=== PATIENT | male | born 1990 | race Caucasian/White ===

== ENCOUNTER 2016-12-28 09:49 | Emergency (ER) | payer SELFPAY ==
[~2016-12-28] VITALS: Ht 177.8 cm; Wt 70.0 kg
[~2016-12-28 09:49] MED LIST: PHEN100 PO
[2016-12-28 09:52] VITALS: BP 146/67; PULSE 92; RESP 18; TEMP 98.5; O2SAT 93
[2016-12-28] MEDS ORDERED: DILA100C PO ×2 (10:01→10:39)
[2016-12-28] MEDS ORDERED: SODIUM CHLOR 0.9% 1000 ML INJ 1,000 ML IV ONE (10:01)
--- NOTE | 2016-12-28 10:04 | PD ---
HPI Chief Complaint: Seizure Time Seen by Provider: 09:56 Travel History International Travel<30 days: No Contact w/Intl Traveler<30days: No Traveled to known affect area: No History of Present Illness HPI WHILE OUTSIDE WITNESSES DESCRIBED TONIC CLONIC SEIZURE ACTIVITY....ONCE WITH EMS , PT RECOVERED AND STATED HE WAS OUT OF HIS DILANTIN AND NEEDED REFILLS PFSH Past Medical History Diminished Hearing: No Hypertension: Yes Seizures: Yes (HX FROM ALCOHOL WITHDRAWAL) Social History Alcohol Use: No (FORMER? RELAPSE?) Tobacco Use: Yes Substance Use: No Allergies-Medications (Allergen,Severity, Reaction): Coded Allergies: Augmentin (Verified Allergy, Unknown, 04/28/16) UNKNOWN Reported Meds & Prescriptions Reported Meds & Active Scripts Active Dilantin (Phenytoin Extended) 100 Mg Cap 100 Mg PO TID Reported Dilantin (Phenytoin Extended) 100 Mg Cap 300 Mg PO DAILY Review of Systems ROS Limitations: Clinical Condition Except as stated in HPI: all other systems reviewed are Neg Physical Exam Narrative GENERAL: SKIN: Warm and dry. EXCEPT FOR ABRASION TO RT SHOULDER, RT FOREARM AND TOP OF SCALP HEAD: SCALP CONTUSION TO TOP Normocephalic. EYES: Pupils equal and round. No scleral icterus. No injection or drainage. ENT: No nasal bleeding or discharge. Mucous membranes pink and moist. NECK: Trachea midline. No JVD. CARDIOVASCULAR: Regular rate and rhythm. RESPIRATORY: No accessory muscle use. Clear to auscultation. Breath sounds equal bilaterally. GASTROINTESTINAL: Abdomen soft, non-tender, nondistended. Hepatic and splenic margins not palpable. MUSCULOSKELETAL: Extremities without clubbing, cyanosis, or edema. No obvious deformities. NEUROLOGICAL: Awake and alert. No obvious cranial nerve deficits. Motor grossly within normal limits. Five out of 5 muscle strength in the arms and legs. Normal speech. PSYCHIATRIC: Appropriate mood and affect; insight and judgment normal. Data Data Last Documented VS Vital Signs Date Time Temp Pulse Resp B/P Pulse Ox O2 Delivery O2 Flow Rate FiO2 12/28/16 10:34 97 Nasal Cannula 2 12/28/16 09:52 98.5 92 18 146/67 Orders Complete Blood Count With Diff (12/28/16 10:01) Basic Metabolic Panel (Bmp) (12/28/16 10:01) Phenytoin (Dilantin) (12/28/16 10:01) Blood Glucose (12/28/16 10:01) Ecg Monitoring (12/28/16 10:01) Iv Access Insert/Monitor (12/28/16 10:01) Oximetry (12/28/16 10:01) Sodium Chlor 0.9% 1000 Ml Inj (Ns 1000 M (12/28/16 10:01) Phenytoin Inj (Dilantin Inj) (12/28/16 10:15) Ct Brain W/O Iv Contrast(Rout) (12/28/16 ) Labs Laboratory Tests Test 12/28/16 10:15 White Blood Count 26.5 TH/MM3 Red Blood Count 5.51 MIL/MM3 Hemoglobin 15.9 GM/DL Hematocrit 51.4 % Mean Corpuscular Volume 93.2 FL Mean Corpuscular Hemoglobin 28.8 PG Mean Corpuscular Hemoglobin 30.9 % Concent Red Cell Distribution Width 13.3 % Platelet Count 338 TH/MM3 Mean Platelet Volume 8.1 FL Neutrophils (%) (Auto) 74.3 % Lymphocytes (%) (Auto) 15.4 % Monocytes (%) (Auto) 6.5 % Eosinophils (%) (Auto) 3.4 % Basophils (%) (Auto) 0.4 % Neutrophils # (Auto) 19.7 TH/MM3 Lymphocytes # (Auto) 4.1 TH/MM3 Monocytes # (Auto) 1.7 TH/MM3 Eosinophils # (Auto) 0.9 TH/MM3 Basophils # (Auto) 0.1 TH/MM3 CBC Comment DIFF FINAL Differential Comment Sodium Level 139 MEQ/L Potassium Level 3.5 MEQ/L Chloride Level 99 MEQ/L Carbon Dioxide Level 10.4 MEQ/L Anion Gap 30 MEQ/L Blood Urea Nitrogen 13 MG/DL Creatinine 1.27 MG/DL Estimat Glomerular Filtration 68 ML/MIN Rate Random Glucose 123 MG/DL Calcium Level 9.2 MG/DL Phenytoin (Dilantin) Level 0.8 MCG/ML STRESS LEUKOCYTOSIS NOTED, NO TRUE SHIFT MDM Medical Decision Making Medical Screen Exam Complete: Yes Emergency Medical Condition: Yes Medical Record Reviewed: Yes Differential Diagnosis EVAL FOR POST SZ COMPLICATIONS Narrative Course PATIENT INITIALLY PARTIALLY POST ICTAL BUT HAS RECOVERED COMPLETELY, CT NEG FOR ICH, LABS WNL Diagnosis Primary Impression: Contusion of scalp Qualified Code: S00.03XA - Contusion of scalp, initial encounter Additional Impression: Seizure disorder Patient Instructions: General Instructions Med/Other Pt SpecificInfo: Prescription(s) given Scripts Phenytoin Extended (Dilantin)100 Mg Nco224 Mg PO TID #90 CAP Ref 0 Prov:Rasheed Duncan MD 12/28/16 Disposition: 01 DISCHARGE HOME Condition: Stable Rasheed Duncan MD December 28, 2016 10:04
[2016-12-28] MEDS ORDERED: PHENYTOIN INJ 1,000 MG in SODIUM CHLORIDE 0.9% INJ 100 ML IV ONE (10:15)
[2016-12-28 10:32] LABS: AUTOMATED NEUTROPHIL # 19.7 TH/MM3 (1.8-7.7); BASOPHIL # 0.1 TH/MM3 (0-0.2); BASOPHIL % 0.4 % (0.0-2.0); EOSINOPHIL # 0.9 TH/MM3 (0-0.4); EOSINOPHIL % 3.4 % (0.0-4.0); HEMATOCRIT 51.4 % (39.0-51.0); HEMO FLAGS DIFF FINAL; LYMPH % 15.4 % (9.0-44.0); LYMPHOCYTE # 4.1 TH/MM3 (1.0-4.8); MEAN CELL VOLUME 93.2 FL (80.0-100.0); MEAN CORPUSCULAR HEMOGLOBIN 28.8 PG (27.0-34.0); MEAN CORPUSCULAR HGB CONC 30.9 % (32.0-36.0); MONO % 6.5 % (0.0-8.0); NEUT % 74.3 % (16.0-70.0); PLATELET COUNT 338 TH/MM3 (150-450); RED BLOOD COUNT 5.51 MIL/MM3 (4.50-5.90); RED CELL DISTRIBUTION WIDTH 13.3 % (11.6-17.2); WHITE BLOOD COUNT 26.5 TH/MM3 (4.0-11.0)
[2016-12-28 10:34] VITALS: O2SAT 97
[2016-12-28 10:47] LABS: BICARBONATE 10.4 MEQ/L (21.0-32.0); POTASSIUM 3.5 MEQ/L (3.5-5.1)
--- NOTE | 2016-12-28 10:56 | RADRPT ---
EXAM DATE/TIME: 12/28/2016 10:47 [facility] COMPARISON: CT BRAIN W/O CONTRAST, April 28, 2016, 15:44. INDICATIONS : Seizures today. RADIATION DOSE: 56.35 CTDIvol (mGy) MEDICAL HISTORY : Hypertension. SURGICAL HISTORY : None. ENCOUNTER: Initial ACUITY: 1 day PAIN SCALE: Non-responsive LOCATION: cranial TECHNIQUE: Multiple contiguous axial images were obtained of the head. Using automated exposure control and adj ustment of the mA and/or kV according to patient size, radiation dose was kept as low as reasonably a chievable to obtain optimal diagnostic quality images. FINDINGS: CEREBRUM: The ventricles are normal for age. No evidence of midline shift, mass lesion, hemorrhage or acute in farction. No extra-axial fluid collections are seen. POSTERIOR FOSSA: The cerebellum and brainstem are intact. The 4th ventricle is midline. The cerebellopontine angle i s unremarkable. EXTRACRANIAL: The visualized portion of the orbits is intact. Chronic sinus disease with mucoperiosteal thickening in the ethmoid air cells bilaterally, left frontal, left sphenoid and bilateral maxillary antra, left greater than right. SKULL: The calvaria is intact. No evidence of skull fracture. Cephalhematoma over the right frontoparietal region. CONCLUSION: 1. Cephalhematoma over the right frontoparietal region with no associated fracture. 2. Chronic sinusitis. 3. No acute intracranial process or trauma. George Farias MD on December 28, 2016 at 10:52 Board Certified Radiologist. This report was verified electronically.
[2016-12-28 11:47] VITALS: BP 116/65; PULSE 89; RESP 16; O2SAT 97
== END 2016-12-28 13:21 | disposition home or self-care (01) ==
LOC: NEPE 09:49
DX: S00.03XA Contusion of scalp, initial encounter (principal); G40.909 Epilepsy, unspecified, not intractable, without status epilepticus; X58.XXXA Exposure to other specified factors, initial encounter
CPT/HCPCS: 70450; 80048; 80185; 85025; 96374; 99284; J1165; J7030

== ENCOUNTER 2017-03-02 07:20 | Emergency (ER) | payer SELFPAY ==
[~2017-03-02] VITALS: Ht 177.8 cm; Wt 70.0 kg
[~2017-03-02 07:20] MED LIST changes: +DILA100C PO; -PHEN100 PO
[2017-03-02 07:30] VITALS: BP 142/97; PULSE 91; RESP 16; TEMP 98; O2SAT 94
[2017-03-02 07:38] VITALS: RESP 16; O2SAT 94
[2017-03-02] MEDS ORDERED: SODIUM CHLORIDE 0.9% FLUSH 10 ML FLUSH IVF PRN (07:45)
--- NOTE | 2017-03-02 07:49 | PD ---
HPI Chief Complaint: Seizure Time Seen by Provider: 07:36 Travel History International Travel<30 days: No Contact w/Intl Traveler<30days: No Traveled to known affect area: No History of Present Illness HPI This is a 26-year-old male with a history of seizure disorder, who presents here via EMS after having a witnessed seizure by his roommates. The patient was in bed and apparently roommates heard strange noises coming from his room. When they went in there they saw him seizing. When paramedics arrived he was slightly postictal however was nearly back to baseline. By the time he arrived here he is back to baseline. Reports last seizure was a little over 1 month ago. The patient does report that he had not been taking his Dilantin as he is recently moved here. He states that he found some Dilantin that was old and started taking 100 mg daily. He states he previously been prescribed 300 mg daily but he thought that may be too much. The patient denies any drugs of abuse. He does report that he is currently in a sober environment and at one time was an alcoholic. He states she's been clean for 4-1/2 months. There are no other complaints time my examination. PFSH Past Medical History Diminished Hearing: No Hypertension: Yes Seizures: Yes Tetanus Vaccination: Unknown Influenza Vaccination: No Social History Alcohol Use: No Tobacco Use: Yes Substance Use: No Allergies-Medications (Allergen,Severity, Reaction): Coded Allergies: Augmentin (Verified Allergy, Unknown, 03/02/17) UNKNOWN Reported Meds & Prescriptions Reported Meds & Active Scripts Active Dilantin (Phenytoin Extended) 100 Mg Cap 100 Mg PO TID Dilantin (Phenytoin Extended) 100 Mg Cap 100 Mg PO TID Review of Systems Except as stated in HPI: all other systems reviewed are Neg General / Constitutional: No: Fever Eyes: No: Blurred Vision, Photophobia HENT: No: Headaches, Neck Pain Cardiovascular: No: Chest Pain or Discomfort, Palpitations Respiratory: No: Cough, Shortness of Breath Gastrointestinal: No: Nausea, Vomiting Genitourinary: No: Dysuria, Incontinence Musculoskeletal: No: Weakness, Pain Skin: No Rash, No Dryness Neurologic: Positive: Seizures, No: Weakness, Headache, Incontinence Physical Exam Narrative GENERAL: Well-developed well-nourished male in no acute respiratory distress. SKIN: Focused skin assessment warm/dry. HEAD: Atraumatic. Normocephalic. EYES: No scleral icterus. No injection or drainage. ENT: No nasal bleeding or discharge. Mucous membranes pink and moist. No tongue bites. NECK: Trachea midline. Supple. CARDIOVASCULAR: Regular rate and rhythm. No murmur appreciated. RESPIRATORY: No accessory muscle use. Clear to auscultation. Breath sounds equal bilaterally. GASTROINTESTINAL: Abdomen soft, non-tender, nondistended. MUSCULOSKELETAL: No obvious deformities. No clubbing. No cyanosis. No edema. NEUROLOGICAL: Awake and alert. No obvious cranial nerve deficits. Motor grossly within normal limits. Normal speech. PSYCHIATRIC: Appropriate mood and affect; insight and judgment normal. Data Data Last Documented VS Vital Signs Date Time Temp Pulse Resp B/P Pulse Ox O2 Delivery O2 Flow Rate FiO2 03/02/17 07:38 16 94 Room Air 03/02/17 07:35 91 03/02/17 07:30 98.0 142/97 Orders Basic Metabolic Panel (Bmp) (03/02/17 07:36) Phenytoin (Dilantin) (03/02/17 07:36) Blood Glucose (03/02/17 07:36) Ecg Monitoring (03/02/17 07:36) Iv Access Insert/Monitor (03/02/17 07:36) Oximetry (03/02/17 07:36) Sodium Chloride 0.9% Flush (Ns Flush) (03/02/17 07:45) Phenytoin Inj (Dilantin Inj) (03/02/17 08:30) Sodium Chlor 0.9% 1000 Ml Inj (Ns 1000 M (03/02/17 08:30) Labs Laboratory Tests Test 03/02/17 07:30 Sodium Level 139 MEQ/L Potassium Level 4.4 MEQ/L Chloride Level 104 MEQ/L Carbon Dioxide Level 24.6 MEQ/L Anion Gap 10 MEQ/L Blood Urea Nitrogen 19 MG/DL Creatinine 0.90 MG/DL Estimat Glomerular Filtration 101 ML/MIN Rate Random Glucose 81 MG/DL Calcium Level 8.3 MG/DL Phenytoin (Dilantin) Level 1.7 MCG/ML MDM Medical Decision Making Medical Screen Exam Complete: Yes Emergency Medical Condition: Yes Differential Diagnosis Seizure versus subtherapeutic Dilantin level versus metabolic arrangement versus pseudoseizure Narrative Course 76-year-old male with a history seizure disorder, who presents after having a witnessed seizure. The patient has been taking only 100 mg of Dilantin daily. He been off of it for quite some time until finding and no prescription. His Dilantin level was 1.7. He's been loaded with 1 g of [place]. He'll be discharged with a prescription for Dilantin 100 mg 3 times a day. He'll be given one refill. The be a mandatory referral for neurologist since he's recently moved into town 4 and half months ago. Diagnosis Primary Impression: Breakthrough seizure Additional Impression: Subtherapeutic serum dilantin level Additional Instructions: Follow up with neurologist. Return if feeling worse. Med/Other Pt SpecificInfo: Prescription(s) given Scripts Phenytoin Extended (Dilantin)100 Mg [id number] Mg PO TID #90 CAP Ref 1 Prov:Etienne Clark MD 03/02/17 Disposition: 01 DISCHARGE HOME Condition: Stable Etienne Clark MD Mar 02, 2017 07:49
[2017-03-02 08:19] LABS: BICARBONATE 24.6 MEQ/L (21.0-32.0); POTASSIUM 4.4 MEQ/L (3.5-5.1)
[2017-03-02] MEDS ORDERED: SODIUM CHLOR 0.9% 1000 ML INJ 1,000 ML IV ONE (08:30)
[2017-03-02] MEDS ORDERED: PHENYTOIN INJ 1,000 MG in SODIUM CHLORIDE 0.9% INJ 100 ML IV ONE (08:30)
[2017-03-02] MEDS ORDERED: DILA100C PO (09:07)
== END 2017-03-02 10:36 | disposition home or self-care (01) ==
LOC: NEPC 07:20
DX: R56.9 Unspecified convulsions (principal)
CPT/HCPCS: 80048; 80185; 96361; 96365; 99284; J1165; J7030

== ENCOUNTER 2017-03-10 07:33 | Emergency (ER) | payer SELFPAY ==
[~2017-03-10] VITALS: Ht 182.9 cm; Wt 72.5 kg
[2017-03-10 07:35] VITALS: BP 180/110; PULSE 95; RESP 18; TEMP 98.5; O2SAT 100
[2017-03-10] MEDS ORDERED: PHEN200C3 PO (08:03)
--- NOTE | 2017-03-10 08:03 | PD ---
HPI Chief Complaint: Seizure Time Seen by Provider: 07:55 Travel History International Travel<30 days: No Contact w/Intl Traveler<30days: No Traveled to known affect area: No History of Present Illness HPI PATIENT STATES THAT HE HAS H/O EPILEPSY WITH AURA AND TODAY HE FELT AN AURA BUT NO SEIZURE THAT FOLLOWED UP. HE CAME TO GET HIS DILANTIN ADJUSTED. NO ACTUAL SEIZURE TODAY, AND IS COMPLIANT WITH HIS DILANTIN 300MG DAILY DOSE. PFSH Past Medical History Hx Anticoagulant Therapy: No Cardiovascular Problems: No Chemotherapy: No Cerebrovascular Accident: No Diabetes: No Diminished Hearing: No Hypertension: Yes Respiratory: No Seizures: Yes Social History Alcohol Use: No Tobacco Use: Yes Substance Use: No Allergies-Medications (Allergen,Severity, Reaction): Coded Allergies: Augmentin (Verified Allergy, Unknown, 03/02/17) UNKNOWN Reported Meds & Prescriptions Reported Meds & Active Scripts Active Dilantin (Phenytoin Extended) 100 Mg Cap 100 Mg PO TID Dilantin (Phenytoin Extended) 100 Mg Cap 100 Mg PO TID Review of Systems Except as stated in HPI: all other systems reviewed are Neg Physical Exam Narrative GENERAL: SKIN: Warm and dry. HEAD: Atraumatic. Normocephalic. EYES: Pupils equal and round. No scleral icterus. No injection or drainage. ENT: No nasal bleeding or discharge. Mucous membranes pink and moist. NECK: Trachea midline. No JVD. CARDIOVASCULAR: Regular rate and rhythm. RESPIRATORY: No accessory muscle use. Clear to auscultation. Breath sounds equal bilaterally. GASTROINTESTINAL: Abdomen soft, non-tender, nondistended. Hepatic and splenic margins not palpable. MUSCULOSKELETAL: Extremities without clubbing, cyanosis, or edema. No obvious deformities. NEUROLOGICAL: Awake and alert. No obvious cranial nerve deficits. Motor grossly within normal limits. Five out of 5 muscle strength in the arms and legs. Normal speech. PSYCHIATRIC: Appropriate mood and affect; insight and judgment normal. Data Data Last Documented VS Vital Signs Date Time Temp Pulse Resp B/P Pulse Ox O2 Delivery O2 Flow Rate FiO2 03/10/17 07:35 98.5 95 18 180/110 100 MDM Medical Decision Making Medical Screen Exam Complete: Yes Emergency Medical Condition: Yes Medical Record Reviewed: Yes Differential Diagnosis N/A Narrative Course PATIENT IS HERE ESSENTIALLY FOR MEDICATION ADJUSTMENT Diagnosis Primary Impression: MEDICATION REFILL Scripts Phenytoin Extended 200 Mg Oiu145 Mg PO BID #120 CAP Ref 1 Prov:Rasheed Duncan MD 03/10/17 Disposition: 01 DISCHARGE HOME Condition: Stable Rasheed Duncan MD Mar 10, 2017 08:03
[2017-03-10 08:05] VITALS: BP 152/113; PULSE 78; RESP 15; O2SAT 99
== END 2017-03-10 08:26 | disposition home or self-care (01) ==
LOC: NEPC 07:33
DX: Z76.0 Encounter for issue of repeat prescription (principal); G40.909 Epilepsy, unspecified, not intractable, without status epilepticus
CPT/HCPCS: 99281

== ENCOUNTER 2017-06-25 11:55 | Emergency (ER) | payer SELFPAY ==
[~2017-06-25 11:55] MED LIST changes: +PHEN200C3 PO
[2017-06-25 12:00] VITALS: BP 176/111; PULSE 122; RESP 18; TEMP 98.6; O2SAT 100
[2017-06-25 12:21] VITALS: O2SAT 97
[2017-06-25] MEDS ORDERED: SODIUM CHLORIDE 0.9% FLUSH 10 ML FLUSH IVF PRN (12:30)
--- NOTE | 2017-06-25 12:35 | PD ---
HPI Chief Complaint: Seizure Time Seen by Provider: 12:10 Travel History International Travel<30 days: No Contact w/Intl Traveler<30days: No Traveled to known affect area: No History of Present Illness HPI Patient is a 26-year-old male presenting to emergency for evaluation of seizures. Patient states that he ran out of his Dilantin yesterday, he did take a 100 mg tablet yesterday morning but did not take the other 2 doses that he would've normally taken because he is out of this medication. He denies any seizures today, he states that he feels he is experiencing an aura. Patient states he woke up with muscle aches and believes he could've had a seizure during the night but did not have any incontinence issues or any other injuries. Patient is on Dilantin 100 mg 3 times a day. No primary provider. Patient further denies any weakness, numbness in his extremities, no headache or visual changes although he does state that he sees spots occasionally. PFSH Past Medical History Hx Anticoagulant Therapy: No Cardiovascular Problems: No Chemotherapy: No Cerebrovascular Accident: No Diabetes: No Diminished Hearing: No Hypertension: Yes Respiratory: No Seizures: Yes Tetanus Vaccination: Unknown Influenza Vaccination: No Social History Alcohol Use: No (hx abuse) Tobacco Use: Yes (LESS THAN 1/2 PPD ) Substance Use: Yes (MARIJUANA OCCASIONALLY ) Allergies-Medications (Allergen,Severity, Reaction): Coded Allergies: amoxicillin (Unverified Allergy, Unknown, 03/27/17) UNKNOWN clavulanic acid (Unverified Allergy, Unknown, 03/27/17) UNKNOWN Reported Meds & Prescriptions Reported Meds & Active Scripts Active Phenytoin Extended 200 Mg Cap 200 Mg PO BID Dilantin (Phenytoin Extended) 100 Mg Cap 100 Mg PO TID Dilantin (Phenytoin Extended) 100 Mg Cap 100 Mg PO TID Review of Systems Except as stated in HPI: all other systems reviewed are Neg Neurologic: Positive: Seizures, Other (AURA) Physical Exam Narrative GENERAL: Well-developed, well-nourished, alert male. Resting comfortably in no acute distress. SKIN: Warm and dry. HEAD: Atraumatic. Normocephalic. EYES: Pupils equal and round. No scleral icterus. No injection or drainage. EOMI. ENT: No nasal bleeding or discharge. Mucous membranes pink and moist. NECK: Trachea midline. No JVD. CARDIOVASCULAR: Regular rate and rhythm. RESPIRATORY: No accessory muscle use. Clear to auscultation. Breath sounds equal bilaterally. GASTROINTESTINAL: Abdomen soft, non-tender, nondistended. Hepatic and splenic margins not palpable. MUSCULOSKELETAL: Extremities without clubbing, cyanosis, or edema. No obvious deformities. NEUROLOGICAL: Awake and alert. No obvious cranial nerve deficits. Motor grossly within normal limits. Five out of 5 muscle strength in the arms and legs. Normal speech. PSYCHIATRIC: Appropriate mood and affect; insight and judgment normal. Data Data Last Documented VS Vital Signs Date Time Temp Pulse Resp B/P (MAP) Pulse Ox O2 Delivery O2 Flow Rate FiO2 06/25/17 12:21 97 Room Air 06/25/17 12:21 85 18 06/25/17 12:00 98.6 Orders Orders Complete Blood Count With Diff (06/25/17 12:16) Blood Glucose (06/25/17 12:16) Ecg Monitoring (06/25/17 12:16) Iv Access Insert/Monitor (06/25/17 12:16) Oximetry (06/25/17 12:16) Comprehensive Metabolic Panel (06/25/17 12:16) Sodium Chloride 0.9% Flush (Ns Flush) (06/25/17 12:30) Phenytoin (Dilantin) (06/25/17 12:16) Phenytoin Inj (Dilantin Inj) (06/25/17 13:30) Labs Laboratory Tests Test 06/25/17 12:25 White Blood Count 7.9 TH/MM3 Red Blood Count 5.51 MIL/MM3 Hemoglobin 16.7 GM/DL Hematocrit 48.1 % Mean Corpuscular Volume 87.3 FL Mean Corpuscular Hemoglobin 30.2 PG Mean Corpuscular Hemoglobin Concent 34.6 % Red Cell Distribution Width 13.0 % Platelet Count 272 TH/MM3 Mean Platelet Volume 7.3 FL Neutrophils (%) (Auto) 59.1 % Lymphocytes (%) (Auto) 24.0 % Monocytes (%) (Auto) 8.9 % Eosinophils (%) (Auto) 7.2 % Basophils (%) (Auto) 0.8 % Neutrophils # (Auto) 4.7 TH/MM3 Lymphocytes # (Auto) 1.9 TH/MM3 Monocytes # (Auto) 0.7 TH/MM3 Eosinophils # (Auto) 0.6 TH/MM3 Basophils # (Auto) 0.1 TH/MM3 CBC Comment DIFF FINAL Differential Comment Blood Urea Nitrogen 16 MG/DL Creatinine 0.85 MG/DL Random Glucose 85 MG/DL Total Protein 7.4 GM/DL Albumin 3.9 GM/DL Calcium Level 8.8 MG/DL Alkaline Phosphatase 105 U/L Aspartate Amino Transf (AST/SGOT) 24 U/L Alanine Aminotransferase (ALT/SGPT) 44 U/L Total Bilirubin 0.4 MG/DL Sodium Level 139 MEQ/L Potassium Level 4.0 MEQ/L Chloride Level 106 MEQ/L Carbon Dioxide Level 25.9 MEQ/L Anion Gap 7 MEQ/L Estimat Glomerular Filtration Rate 108 ML/MIN Phenytoin (Dilantin) Level 0.5 MCG/ML [facility] Medical Decision Making Medical Screen Exam Complete: Yes Emergency Medical Condition: Yes Medical Record Reviewed: Yes Interpretation(s) Laboratory Tests Test 06/25/17 12:25 White Blood Count 7.9 TH/MM3 Red Blood Count 5.51 MIL/MM3 Hemoglobin 16.7 GM/DL Hematocrit 48.1 % Mean Corpuscular Volume 87.3 FL Mean Corpuscular Hemoglobin 30.2 PG Mean Corpuscular Hemoglobin Concent 34.6 % Red Cell Distribution Width 13.0 % Platelet Count 272 TH/MM3 Mean Platelet Volume 7.3 FL Neutrophils (%) (Auto) 59.1 % Lymphocytes (%) (Auto) 24.0 % Monocytes (%) (Auto) 8.9 % Eosinophils (%) (Auto) 7.2 % Basophils (%) (Auto) 0.8 % Neutrophils # (Auto) 4.7 TH/MM3 Lymphocytes # (Auto) 1.9 TH/MM3 Monocytes # (Auto) 0.7 TH/MM3 Eosinophils # (Auto) 0.6 TH/MM3 Basophils # (Auto) 0.1 TH/MM3 CBC Comment DIFF FINAL Differential Comment Blood Urea Nitrogen 16 MG/DL Creatinine 0.85 MG/DL Random Glucose 85 MG/DL Total Protein 7.4 GM/DL Albumin 3.9 GM/DL Calcium Level 8.8 MG/DL Alkaline Phosphatase 105 U/L Aspartate Amino Transf (AST/SGOT) 24 U/L Alanine Aminotransferase (ALT/SGPT) 44 U/L Total Bilirubin 0.4 MG/DL Sodium Level 139 MEQ/L Potassium Level 4.0 MEQ/L Chloride Level 106 MEQ/L Carbon Dioxide Level 25.9 MEQ/L Anion Gap 7 MEQ/L Estimat Glomerular Filtration Rate 108 ML/MIN Phenytoin (Dilantin) Level 0.5 MCG/ML Vital Signs Date Time Temp Pulse Resp B/P (MAP) Pulse Ox O2 Delivery O2 Flow Rate FiO2 06/25/17 12:21 97 Room Air 06/25/17 12:21 85 18 97 Room Air 06/25/17 12:00 98.6 122 18 176/111 (132) 100 Differential Diagnosis Seizure disorder versus metabolic abnormality versus noncompliance versus other Narrative Course Patient is a 26-year-old male presenting to emergency Department for evaluation of his seizure disorder. He is out of his medications, last dose of Dilantin was yesterday morning. He has had no seizure reports in all 4. Physical examination is unremarkable. Labs ordered and pending. Vital signs are stable. Labs reviewed, is identified. dilantin level 0.5 which is to be expected. patient be given dose of iv dilantin now, he will be given refills of his dilantin. He is was advised to follow-up with [facility], he was given verbal instructions and education regarding this clinic. Patient will be kept at same dose of Dilantin since it appears to be working other than when he runs out. He was advised to avoid marijuana use which can lower his seizure threshold. Patient verbalized understanding of these instructions. Patient is stable for discharge. Diagnosis Primary Impression: Seizure disorder Referrals: [facility] 1 week Patient Instructions: General Instructions, Recurrent Seizures in Adults (ED) Additional Instructions: Follow-up at the [facility] Take medications as directed, do not skip or missed doses Avoid illicit drug use which can lower your seizure threshold Return to emergency department for any new or worsening symptoms Med/Other Pt SpecificInfo: Prescription(s) given Scripts Phenytoin Extended (Dilantin) 100 Mg Cap 100 MG PO TID for Control Seizures, #90 CAP 1 Refill Prov: Britta Roche 06/25/17 Disposition: 01 DISCHARGE HOME Condition: Stable Britta Roche Jun 25, 2017 12:35
[2017-06-25 12:38] LABS: AUTOMATED NEUTROPHIL # 4.7 TH/MM3 (1.8-7.7); BASOPHIL # 0.1 TH/MM3 (0-0.2); BASOPHIL % 0.8 % (0.0-2.0); EOSINOPHIL # 0.6 TH/MM3 (0-0.4); EOSINOPHIL % 7.2 % (0.0-4.0); HEMATOCRIT 48.1 % (39.0-51.0); HEMO FLAGS DIFF FINAL; LYMPHOCYTE # 1.9 TH/MM3 (1.0-4.8); MEAN CELL VOLUME 87.3 FL (80.0-100.0); MEAN CORPUSCULAR HEMOGLOBIN 30.2 PG (27.0-34.0); MEAN CORPUSCULAR HGB CONC 34.6 % (32.0-36.0); MONO % 8.9 % (0.0-8.0); NEUT % 59.1 % (16.0-70.0); PLATELET COUNT 272 TH/MM3 (150-450); RED BLOOD COUNT 5.51 MIL/MM3 (4.50-5.90); WHITE BLOOD COUNT 7.9 TH/MM3 (4.0-11.0)
[2017-06-25 13:24] LABS: ALKALINE PHOSPHATASE 105 U/L (45-117); ALT (GPT) 44 U/L (12-78); ANION GAP 7 MEQ/L (5-15); AST (GOT) 24 U/L (15-37); BICARBONATE 25.9 MEQ/L (21.0-32.0); BLOOD UREA NITROGEN 16 MG/DL (7-18); CHLORIDE 106 MEQ/L (98-107); GLOMERULAR FILTRATION RATE 108 ML/MIN (>89); SODIUM (NA) 139 MEQ/L (136-145); TOTAL BILIRUBIN ADULT 0.4 MG/DL (0.2-1.0)
[2017-06-25] MEDS ORDERED: PHENYTOIN INJ 1,000 MG in SODIUM CHLORIDE 0.9% INJ 100 ML IV ONE (13:30)
[2017-06-25] MEDS ORDERED: DILA100C PO (13:37)
== END 2017-06-25 15:15 | disposition home or self-care (01) ==
LOC: NEPE 11:55
DX: G40.909 Epilepsy, unspecified, not intractable, without status epilepticus (principal); I10 Essential (primary) hypertension; Z72.0 Tobacco use; Z86.69 Personal history of other diseases of the nervous system and sense organs
CPT/HCPCS: 80053; 80185; 85025; 96365; 99284; J1165

== ENCOUNTER 2017-11-16 11:53 | Emergency (ER) | payer SELFPAY ==
[~2017-11-16] VITALS: Ht 182.9 cm; Wt 75.0 kg
[2017-11-16 12:20] VITALS: BP 149/97; PULSE 90; RESP 18; TEMP 97.3; O2SAT 100
[2017-11-16 12:58] VITALS: BP 122/89; PULSE 165; RESP 15; O2SAT 98
[2017-11-16] MEDS ORDERED: LORazepam 2 MG/ML VIAL ONE (13:04)
--- NOTE | 2017-11-16 13:09 | PD ---
HPI Chief Complaint: Seizure Time Seen by Provider: 12:57 Travel History International Travel<30 days: No Contact w/Intl Traveler<30days: No Traveled to known affect area: No History of Present Illness HPI 27-year-old male complains of headache, and seizure. Patient states that he had several seizure episode this morning. Patient has history of seizure. Patient states that he has been taking Dilantin. Patient states the last dose was yesterday. Patient has not had any Dilantin this morning. Patient denies any illicit drug abuse or alcohol abuse recently. Patient states he has aching headache. Patient denies any visual change. Patient denies any neck pain. Patient denies any chest pain or shortness of breath. Patient denies abdominal pain. Patient denies any focal weakness or numbness of extremity. Patient denies any recent head injury. Patient denies any fever chills. PFSH Past Medical History Hx Anticoagulant Therapy: No Cardiovascular Problems: No Chemotherapy: No Cerebrovascular Accident: No Diabetes: No Diminished Hearing: No Hypertension: Yes Medical other: Yes (kindney failure ) Respiratory: No Seizures: Yes Past Surgical History Surgical History: No Previous Surgery Social History Alcohol Use: Yes (hx abuse) Tobacco Use: Yes (LESS THAN 1/2 PPD ) Substance Use: Yes (MARIJUANA OCCASIONALLY ) Allergies-Medications (Allergen,Severity, Reaction): Coded Allergies: amoxicillin (Unverified Allergy, Unknown, 03/27/17) UNKNOWN clavulanic acid (Unverified Allergy, Unknown, 03/27/17) UNKNOWN Reported Meds & Prescriptions Reported Meds & Active Scripts Active Dilantin (Phenytoin Extended) 100 Mg Cap 100 Mg PO TID Phenytoin Extended 200 Mg Cap 200 Mg PO BID Dilantin (Phenytoin Extended) 100 Mg Cap 100 Mg PO TID Review of Systems General / Constitutional: No: Fever Eyes: No: Visual changes HENT: Positive: Headaches Cardiovascular: Positive: Tachycardia, No: Chest Pain or Discomfort Respiratory: No: Shortness of Breath Gastrointestinal: No: Abdominal Pain Genitourinary: No: Dysuria Musculoskeletal: No: Pain Skin: No Rash Neurologic: Positive: Seizures, No: Weakness Psychiatric: No: Depression Endocrine: No: Polydipsia Hematologic/Lymphatic: No: Easy Bruising Physical Exam Narrative GENERAL: Well-nourished, well-developed patient. SKIN: Focused skin assessment warm/dry. HEAD: Normocephalic. EYES: No scleral icterus. No injection or drainage. NECK: Supple, trachea midline. No JVD or lymphadenopathy. CARDIOVASCULAR: Tachycardia rate and rhythm without murmurs, gallops, or rubs. RESPIRATORY: Breath sounds equal bilaterally. No accessory muscle use. GASTROINTESTINAL: Abdomen soft, non-tender, nondistended. MUSCULOSKELETAL: No cyanosis, or edema. BACK: Nontender without obvious deformity. No CVA tenderness. Neurologic exam normal. Data Data Last Documented VS Vital Signs Date Time Temp Pulse Resp B/P (MAP) Pulse Ox O2 Delivery O2 Flow Rate FiO2 11/16/17 14:40 95 24 116/91 (99) 96 Room Air 11/16/17 12:20 97.3 Orders Orders Sodium Chlor 0.9% 1000 Ml Inj (Ns 1000 M (11/16/17 13:15) Lorazepam Inj (Ativan Inj) (11/16/17 13:15) Electrocardiogram (11/16/17 13:04) Complete Blood Count With Diff (11/16/17 13:04) Comprehensive Metabolic Panel (11/16/17 13:04) Creatine Kinase (Cpk) (11/16/17 13:04) Troponin I (11/16/17 13:04) Prothrombin Time / Inr (Pt) (11/16/17 13:04) Act Partial Throm Time (Ptt) (11/16/17 13:04) Phenytoin (Dilantin) (11/16/17 13:04) Thyroid Stimulating Hormone (11/16/17 13:04) Chest, Single Ap (11/16/17 13:04) Iv Access Insert/Monitor (11/16/17 13:04) Ecg Monitoring (11/16/17 13:04) Oximetry (11/16/17 13:04) Drug Screen, Random Urine (11/16/17 13:04) Alcohol (Ethanol) (11/16/17 13:04) Lorazepam Inj (Ativan Inj) (11/16/17 13:04) Ketorolac Inj (Toradol Inj) (11/16/17 13:15) Ct Brain W/O Iv Contrast(Rout) (11/16/17 13:14) Labs Laboratory Tests Test 11/16/17 13:15 White Blood Count 18.0 TH/MM3 Red Blood Count 5.55 MIL/MM3 Hemoglobin 16.7 GM/DL Hematocrit 48.7 % Mean Corpuscular Volume 87.7 FL Mean Corpuscular Hemoglobin 30.0 PG Mean Corpuscular Hemoglobin Concent 34.2 % Red Cell Distribution Width 13.9 % Platelet Count 244 TH/MM3 Mean Platelet Volume 7.1 FL Neutrophils (%) (Auto) 92.1 % Lymphocytes (%) (Auto) 2.7 % Monocytes (%) (Auto) 4.9 % Eosinophils (%) (Auto) 0.1 % Basophils (%) (Auto) 0.2 % Neutrophils # (Auto) 16.5 TH/MM3 Lymphocytes # (Auto) 0.5 TH/MM3 Monocytes # (Auto) 0.9 TH/MM3 Eosinophils # (Auto) 0.0 TH/MM3 Basophils # (Auto) 0.0 TH/MM3 CBC Comment AUTO DIFF Differential Comment AUTO DIFF CONFIRMED Prothrombin Time 10.1 SEC Prothromb Time International Ratio 1.0 RATIO Activated Partial Thromboplast Time 25.1 SEC Blood Urea Nitrogen 14 MG/DL Creatinine 1.05 MG/DL Random Glucose 88 MG/DL Total Protein 8.0 GM/DL Albumin 4.1 GM/DL Calcium Level 8.1 MG/DL Alkaline Phosphatase 107 U/L Aspartate Amino Transf (AST/SGOT) 29 U/L Alanine Aminotransferase (ALT/SGPT) 32 U/L Total Bilirubin 0.5 MG/DL Sodium Level 138 MEQ/L Potassium Level 4.3 MEQ/L Chloride Level 104 MEQ/L Carbon Dioxide Level 26.7 MEQ/L Anion Gap 7 MEQ/L Estimat Glomerular Filtration Rate 84 ML/MIN Total Creatine Kinase 236 U/L Troponin I LESS THAN 0.02 NG/ML Thyroid Stimulating Hormone 3rd Gen 0.654 uIU/ML Phenytoin (Dilantin) Level 3.5 MCG/ML Ethyl Alcohol Level LESS THAN 3 MG/DL MDM Medical Decision Making Medical Screen Exam Complete: Yes Emergency Medical Condition: Yes Interpretation(s) Last Impressions Head CT 11/16/17 1314 Signed Impressions: Service Date/Time: Thursday, November 16, 2017 13:28 - CONCLUSION: 1. No acute findings in the brain. 2. Maxillary and ethmoid sinus disease. Dion Garcia MD Chest X-Ray 11/16/17 1304 Signed Impressions: Service Date/Time: Thursday, November 16, 2017 13:18 - CONCLUSION: No acute cardiopulmonary process. George Farias MD 1508 p.m. CBC WBC 18.0. 92 neutrophil. CMP within normal limits. Cardiac enzymes are normal. Dilantin 3.5. Alcohol negative. Differential Diagnosis Differential diagnosis including breakthrough seizure, noncompliance, electrolyte imbalance, SVT Narrative Course 27-year-old male with breakthrough seizures. Patient is also tachycardic. Normal saline solution 1 L IV bolus. Ativan 2 mg IV given. Fosphenytoin 1 g IV given. Repeat normal saline solution 1 L IV bolus. Diagnosis Primary Impression: Breakthrough seizure Additional Impression: Subtherapeutic serum dilantin level Patient Instructions: General Instructions Additional Instructions: Advised patient strongly to take Dilantin as directed. Follow with local physician. Have level checked in 1 week. Return if any problem. Med/Other Pt SpecificInfo: Prescription(s) given Scripts Phenytoin Extended (Dilantin) 100 Mg Cap 100 MG PO TID for Control Seizures, #90 CAP 0 Refills Prov: Stephen Love MD 11/16/17 Disposition: 01 DISCHARGE HOME Condition: Stable Stephen Love MD Nov 16, 2017 13:09
[2017-11-16 13:12] VITALS: O2SAT 98
[2017-11-16] MEDS ORDERED: LORazepam 2 MG/ML VIAL IV PUSH ONE (13:15)
[2017-11-16] MEDS ORDERED: SODIUM CHLOR 0.9% 1000 ML INJ 1,000 ML IV ONE ×2 (13:15→15:15)
[2017-11-16] MEDS ORDERED: KETOROLAC TROMETHAMINE 30 MG/ML (IVP) VIAL IV PUSH ONE (13:15)
[2017-11-16 13:26] LABS: AUTOMATED NEUTROPHIL # 16.5 TH/MM3 (1.8-7.7); BASOPHIL % 0.2 % (0.0-2.0); EOSINOPHIL % 0.1 % (0.0-4.0); HEMATOCRIT 48.7 % (39.0-51.0); HEMOGLOBIN 16.7 GM/DL (13.0-17.0); LYMPH % 2.7 % (9.0-44.0); LYMPHOCYTE # 0.5 TH/MM3 (1.0-4.8); MEAN CELL VOLUME 87.7 FL (80.0-100.0); MEAN CORPUSCULAR HGB CONC 34.2 % (32.0-36.0); MEAN PLATELET VOLUME 7.1 FL (7.0-11.0); MONO % 4.9 % (0.0-8.0); MONOCYTE # 0.9 TH/MM3 (0-0.9); NEUT % 92.1 % (16.0-70.0); PLATELET COUNT 244 TH/MM3 (150-450); RED BLOOD COUNT 5.55 MIL/MM3 (4.50-5.90); RED CELL DISTRIBUTION WIDTH 13.9 % (11.6-17.2)
[2017-11-16 13:35] LABS: PROTHROMBIN TIME - PATIENT 10.1 SEC (9.8-11.6)
--- NOTE | 2017-11-16 13:37 | RADRPT ---
EXAM DATE/TIME: 11/16/2017 13:18 [facility] COMPARISON: No previous studies available for comparison. INDICATIONS : Seizures and short of breath. MEDICAL HISTORY : Seizures SURGICAL HISTORY : None. ENCOUNTER: Initial ACUITY: 1 day PAIN SCORE: 0/10 LOCATION: Bilateral chest FINDINGS: A single view of the chest demonstrates the lungs to be symmetrically aerated without evidence of mas s, infiltrate or effusion. The cardiomediastinal contours are unremarkable. Osseous structures are intact. CONCLUSION: No acute cardiopulmonary process. George Farias MD on November 16, 2017 at 13:33 Board Certified Radiologist. This report was verified electronically.
--- NOTE | 2017-11-16 13:47 | RADRPT ---
EXAM DATE/TIME: 11/16/2017 13:28 [facility] COMPARISON: CT BRAIN W/O CONTRAST, December 28, 2016, 10:47. INDICATIONS : Multiple seizures, cephalgia. RADIATION DOSE: 35.67 CTDIvol (mGy) MEDICAL HISTORY : Seizures. Hypertension. SURGICAL HISTORY : None. ENCOUNTER: Initial ACUITY: 1 day PAIN SCALE: 4/10 LOCATION: Bilateral cranial TECHNIQUE: Multiple contiguous axial images were obtained of the head. Using automated exposure control and adj ustment of the mA and/or kV according to patient size, radiation dose was kept as low as reasonably a chievable to obtain optimal diagnostic quality images. DICOM format image data is available electro nically for review and comparison. FINDINGS: CEREBRUM: The ventricles are normal for age. No evidence of midline shift, mass lesion, hemorrhage or acute in farction. No extra-axial fluid collections are seen. POSTERIOR FOSSA: The cerebellum and brainstem are intact. The 4th ventricle is midline. The cerebellopontine angle i s unremarkable. EXTRACRANIAL: Rounded soft tissue density in the inferior right maxillary sinus. Minimal mucosal thickening in the left maxillary sinus. Multiple opacified bilateral anterior and mid ethmoid air cells. The visuali zed portion of the orbits is intact. SKULL: The calvaria is intact. No evidence of skull fracture. CONCLUSION: 1. No acute findings in the brain. 2. Maxillary and ethmoid sinus disease. Dion Garcia MD on November 16, 2017 at 13:43 Board Certified Radiologist. This report was verified electronically.
[2017-11-16 14:10] LABS: ALKALINE PHOSPHATASE 107 U/L (45-117); PHENYTOIN (DILANTIN) 3.5 MCG/ML (10.0-20.0); TOTAL BILIRUBIN ADULT 0.5 MG/DL (0.2-1.0); TROPONIN I LESS THAN 0.02 NG/ML (0.02-0.05)
[2017-11-16 14:18] LABS: ALBUMIN 4.1 GM/DL (3.4-5.0); ALT (GPT) 32 U/L (12-78); AST (GOT) 29 U/L (15-37); BICARBONATE 26.7 MEQ/L (21.0-32.0); BLOOD UREA NITROGEN 14 MG/DL (7-18); CALCIUM 8.1 MG/DL (8.5-10.1); CHLORIDE 104 MEQ/L (98-107); CREATININE 1.05 MG/DL (0.60-1.30); GLOMERULAR FILTRATION RATE 84 ML/MIN (>89); GLUCOSE,RANDOM 88 MG/DL (74-106); SODIUM (NA) 138 MEQ/L (136-145)
[2017-11-16 14:40] VITALS: BP 116/91; PULSE 95; RESP 24; O2SAT 96
[2017-11-16] MEDS ORDERED: FOSPHENYTOIN INJ 1,000 MGPE in SODIUM CHLORIDE 0.9% INJ 50 ML IV ONE (15:15)
[2017-11-16] MEDS ORDERED: DILA100C PO (15:21)
--- NOTE | 2017-11-17 18:04 | EKG ---
Date Performed: 11/16/2017 Time Performed: 13:03:13 PTAGE: 27 years EKG: SUPRAVENTRICULAR TACHYCARDIA Compared to previous tracing, the sinus bradycardia has been r eplaced with probably a paroxysmal supraventricular tachycardia with a rate of 163 Clinical correlati on is recommended ABNORMAL RHYTHM ECG PREVIOUS TRACING : 04/28/2016 14.20 DOCTOR: Domingo Lewis Interpretating Date/Time 11/17/2017 18:04:08
== END 2017-11-16 17:13 | disposition home or self-care (01) ==
LOC: NEPE 11:53
DX: G40.909 Epilepsy, unspecified, not intractable, without status epilepticus (principal); R94.31 Abnormal electrocardiogram [ECG] [EKG]; I12.9 Hypertensive chronic kidney disease with stage 1 through stage 4 chronic kidney disease, or unspecified chronic kidney disease; N18.9 Chronic kidney disease, unspecified; F17.200 Nicotine dependence, unspecified, uncomplicated
CPT/HCPCS: 70450; 71045; 80053; 80185; 80307; 82550; 84443; 84484; 85025; 85610; 85730; 93005; 96361; 96365; 96375; 99285; J1885; J2060; J7030; Q2009